=== PATIENT | male | born 1945 | race Two or more races ===

== ENCOUNTER 2023-12-12 09:20 | Emergency (ER) | payer OTHER ==
[~2023-12-12] VITALS: Ht 175.3 cm; Wt 74.4 kg
[2023-12-12] MEDS ORDERED: TIROSINT100 MCG PO (09:39)
[2023-12-12] MEDS ORDERED: TAMS0.4C PO (09:40)
[2023-12-12] MEDS ORDERED: LOSARTAN POTASS25 MG PO (09:40)
[2023-12-12] MEDS ORDERED: DEXAMETHASONE SODIUM PHOSPHATE 4 MG/ML VIAL IM STA (10:46)
== END 2023-12-12 13:15 | disposition home or self-care (01) ==
LOC: ER 09:20
DX: J31.0 Chronic rhinitis (principal); E03.8 Other specified hypothyroidism; Z88.5 Allergy status to narcotic agent
CPT/HCPCS: 72040; 96372; 99283; J1100